=== PATIENT | female | born 1950 | race Two or more races ===

== ENCOUNTER 2022-02-11 19:30 | Emergency (ER) | payer OTHER ==
[~2022-02-11] VITALS: Ht 154.9 cm; Wt 98.0 kg
[2022-02-11] MEDS ORDERED: ZOCOR40 MG PO (20:48)
[2022-02-11] MEDS ORDERED: NAPROXEN500 MG PO (20:49)
== END 2022-02-11 23:54 | disposition home or self-care (01) ==
LOC: ER 19:30
DX: J45.909 Unspecified asthma, uncomplicated (principal); R06.02 Shortness of breath; Z20.822 Contact with and (suspected) exposure to COVID-19